=== PATIENT | female | born 1935 | race Caucasian/White ===

== ENCOUNTER → 2017-10-16 | Outpatient (CLI) | payer MEDICARE ==
[~2017-10-16] MED LIST: AZITHROMYCIN 2250 MG PO; COZAAR 25 MG TA25 M1 PO; CYCLOBENZAPRINE5 MG PO; FLEXERIL PO; HYPERTENSION MED; IBUPROFEN 400400 M1 PO; LISINOPRIL5 MG PO; MUCINEX TA600 MG/TA2 PO; NORCO 5-325 TA1 EAC1 PO; NORCO 5-325 TA1 EACH PO; PROAIR HFA8.5 GM INH; [UNRECOGNIZED DRUG - OTHER]
== END ==
LOC: M.ULTRA 09:16
DX: I73.9 Peripheral vascular disease, unspecified (principal); M79.604 Pain in right leg; R25.2 Cramp and spasm

== ENCOUNTER → 2018-01-09 | Outpatient (CLI) | payer MEDICARE | LOC: M.RAD 14:16 | DX: Z12.31 Encounter for screening mammogram for malignant neoplasm of breast (principal) ==

== ENCOUNTER → 2018-01-09 | Outpatient (CLI) | payer OTHER | LOC: M.CT 14:11 | DX: Z13.6 Encounter for screening for cardiovascular disorders (principal) ==

== ENCOUNTER → 2018-03-06 | Outpatient (CLI) | payer MEDICARE | LOC: M.ULTRA 12:41 | DX: M79.89 Other specified soft tissue disorders (principal); M79.662 Pain in left lower leg; M25.562 Pain in left knee ==

== ENCOUNTER → 2018-08-02 | Outpatient (CLI) | payer MEDICARE | LOC: M.RAD 12:50 | DX: N63.20 Unspecified lump in the left breast, unspecified quadrant (principal); R92.8 Other abnormal and inconclusive findings on diagnostic imaging of breast ==

== ENCOUNTER → 2019-06-19 | Outpatient (CLI) | payer MEDICARE | LOC: M.RAD 08:30 | DX: Z12.31 Encounter for screening mammogram for malignant neoplasm of breast (principal) ==

== ENCOUNTER → 2019-10-08 | Outpatient (CLI) | payer MEDICARE ==
[2019-10-08 15:11] LABS: ABSOLUTE BASOPHILS 0.1 thou/uL (0.0-0.2); ABSOLUTE EOSINOPHILS 0.2 thou/uL (0.0-0.7); ABSOLUTE LYMPHOCYTES 2.6 thou/uL (0.8-5.3); ABSOLUTE MONOCYTES 0.8 thou/uL (0.0-1.2); ABSOLUTE NEUTROPHILS 4.9 thou/uL (1.6-8.1); BASOPHILS 1.3 %; EOSINOPHILS 2.7 %; HEMATOCRIT 41.4 % (37.0-47.0); HEMOGLOBIN 13.9 gm/dL (12.0-15.0); LYMPHOCYTES 30.4 %; MCH 29.4 pg (26.0-34.0); MCHC 33.6 g/dL (28.0-37.0); MCV 87.6 fL (80.0-100.0); MONOCYTES 9.1 %; NUCLEATED RBCS 0 /100WBC; PLATELET COUNT* 207 thou/uL (150-400); POLYS 56.5 %; RBC 4.72 mil/uL (4.20-5.00); RDW-CV 13.4 % (10.5-14.5); WBC 8.6 thou/uL (4.0-11.0)
[2019-10-08 15:25] LABS: ALBUMIN 3.5 g/dL (3.4-5.0); CALCIUM 8.7 mg/dL (8.5-10.1); CREATININE 0.7 mg/dL (0.6-1.3); TOTAL BILIRUBIN 0.3 mg/dL (<0.1-1.0); TOTAL PROTEIN 7.2 g/dL (6.4-8.2)
== END ==
LOC: M.LAB 14:56 → M.CT 16:00
PROVIDERS: Nurse Practitioner Adult Health
DX: K80.20 Calculus of gallbladder without cholecystitis without obstruction (principal); K57.30 Diverticulosis of large intestine without perforation or abscess without bleeding; K76.0 Fatty (change of) liver, not elsewhere classified; J98.4 Other disorders of lung; K59.00 Constipation, unspecified

== ENCOUNTER → 2020-01-14 | Outpatient (CLI) | payer MEDICARE | LOC: M.CT 08:00 | PROVIDERS: ATTEND Internal Medicine | DX: R91.8 Other nonspecific abnormal finding of lung field (principal); J98.4 Other disorders of lung; K76.0 Fatty (change of) liver, not elsewhere classified ==

== ENCOUNTER → 2020-07-23 | Outpatient (CLI) | payer MEDICARE | LOC: M.RAD 07:49 | PROVIDERS: ATTEND Family Medicine | DX: Z12.31 Encounter for screening mammogram for malignant neoplasm of breast (principal) ==

== ENCOUNTER → 2021-02-01 | Outpatient (CLI) | payer MEDICARE ==
[~2021-02-01] MED LIST changes: +CIPRO500 M1 PO; +FLAGYL500 M1 PO; +IBUPROFEN 400400 M2 PO; +LOSARTAN POTASS50 MG PO; +METFORMIN HCL500 M3 PO; +MIRALAX119 GM PO; +TRAMADOL 50 MG50 MG PO
== END ==
LOC: M.RAD 01-28 10:04
PROVIDERS: ATTEND Nurse Practitioner Family
DX: N63.24 Unspecified lump in the left breast, lower inner quadrant (principal); J84.9 Interstitial pulmonary disease, unspecified; R05 Cough; R06.00 Dyspnea, unspecified; M81.0 Age-related osteoporosis without current pathological fracture

== ENCOUNTER → 2021-02-04 | Day surgery (SDC) | payer MEDICARE ==
--- NOTE | ~2021-02-04 | PROC ---
[address] [address] PROCEDURE REPORT Name: MARILUZ SORIANO ANN Room: [facility] M.R.#: [id number] Admission: 02/04/21 Attend Phys: Kaylan Pritchard MD Discharge: Date of : 33 Report #: [id number] THIS REPORT FOR: cc: Freeman Aragon Bradley L. DO [facility],Medical Records Staff ~ For GI report, please see the Provation report in Perceptive 7 content. By: [id number] Records Staff JENA /AMRITA
[2021-02-04 12:12] LABS: HEMATOCRIT 43.5 % (37.0-47.0); HEMOGLOBIN 14.5 gm/dL (12.0-15.0); MCH 29.1 pg (26.0-34.0); MCHC 33.2 g/dL (28.0-37.0); MCV 87.6 fL (80.0-100.0); RBC 4.97 mil/uL (4.20-5.00); RDW-CV 14.8 % (10.5-14.5); WBC 10.2 thou/uL (4.0-11.0)
[2021-02-04 12:16] LABS: CALCIUM 9.2 mg/dL (8.5-10.1); CREATININE 0.8 mg/dL (0.6-1.3); POTASSIUM 4.6 mmol/L (3.5-5.1)
--- NOTE | 2021-02-04 16:09 | EKG ---
[place] [address] ELECTROCARDIOGRAM REPORT Name: MARILUZ SORIANO Room: [facility].#: [id number] Admission: 02/04/21 Attend Phys: Kaylan Pritchard MD Discharge: Date of : 33 Date of Service: 02/04/21 1215 Report #: [id number] THIS REPORT FOR: //name// [facility] Test Date: 2021-02-04 Test Time: 12:15:00 Pat Name: MARILUZ SORIANO Department: Room: Gender: F Content Strategist: : 1935 Requested By: Miguelito Harmon Order Number: [id number] Reading MD: Olaf Rose Measurements Intervals [place] Rate: 87 P: 59 PA: 150 QRS: -59 QRSD: 107 T: 74 QT: 367 QTc: 442 Interpretive Statements Sinus rhythm Left anterior fascicular block Abnormal R-wave progression, early transition Left ventricular hypertrophy Compared to ECG 06/08/2015 11:52:36 No significant changes Electronically Signed On 02-04-2021 16:09:05 CDT by Olaf Rose [email or web address] <ELECTRONICALLY SIGNED> By: Olaf Rose MD, FAC 02/04/21 1609 1215 1215 Olaf Rose MD, [facility] /EPI
== END | disposition home or self-care (01) ==
LOC: M.SUR 11:28
PROVIDERS: Anesthesiology; ATTEND Internal Medicine Gastroenterology
DX: R10.31 Right lower quadrant pain (principal); K63.5 Polyp of colon; R19.5 Other fecal abnormalities; R19.4 Change in bowel habit; K57.30 Diverticulosis of large intestine without perforation or abscess without bleeding; K64.8 Other hemorrhoids; I10 Essential (primary) hypertension; E11.9 Type 2 diabetes mellitus without complications; J43.9 Emphysema, unspecified; F41.9 Anxiety disorder, unspecified; Z98.890 Other specified postprocedural states; Z79.899 Other long term (current) drug therapy; Z96.653 Presence of artificial knee joint, bilateral

== ENCOUNTER → 2021-07-21 | Outpatient (CLI) | payer MEDICARE | LOC: M.RAD 08:41 | PROVIDERS: ATTEND Family Medicine | DX: Z12.31 Encounter for screening mammogram for malignant neoplasm of breast (principal) ==